=== PATIENT | female | born 1945 | race Caucasian/White ===

== ENCOUNTER 2017-10-30 19:14 | Inpatient (IN) | payer OTHER, BC ==
[2017-10-30] MEDS ORDERED: NS 500 ML IV ONE (19:27)
[2017-10-30] MEDS ORDERED: ONDANSETRON 4 MG/2 ML VIAL IVP ONE (19:27)
[2017-10-30] MEDS ORDERED: FAMOTIDINE 20 MG/NACL 50 ML IV ONE (19:27)
--- NOTE | 2017-10-30 19:34 | EDPHY ---
H & P Time Seen by Provider: 10/30/17 19:26 HPI/ROS: HPI Epigastric pain. 72-year-old female by private vehicle with and daughter. Both the patient and her arrived from [place] yesterday. They are looking at house is out here. Their daughter lives here. This patient has a history of pancreatitis. No clear etiology of this is been established. She reports that she developed epigastric pain over May of last year. She has had extensive testing involving her abdomen as well as cardiovascular system without any clear etiology for her pain. She reports that this morning she noticed that she had a band like upper abdominal discomfort. She reports that throughout the day it became worse. Comes on in waves. It is described as cramping and sharp and in the epigastric area. She has had some nausea but no vomiting. No diarrhea. No bloody or melenic stool. Last meal was earlier this morning. No history of extensive NSAID use. No history of alcohol abuse. No diabetes. ROS: Constitutional: No fever, no chills. No weakness. Eyes: No discharge. No changes in vision. ENT: No sore throat. No nasal congestion or rhinorrhea. Respiratory: No cough. No shortness of breath. Cardiac: No chest pain, no palpitations. Gastrointestinal: As above, no vomiting, no diarrhea. Genitourinary: No hematuria. No dysuria or increased frequency with urination. Musculoskeletal: No back pain. No neck pain. No myalgias or arthralgias. Skin: No rashes. Neurological: No headache. No focal weakness or altered sensation. Past medical history: TIA. As above. All of her health care has been in [place]. Social history: From [place]. Here with and daughter. Nonsmoker. No alcohol abuse. Physical Exam: General Appearance: Alert, appears comfortable but then will start wincing in pain. This patient is responding to questions appropriately and in full sentences. This patient appears well-hydrated and well-nourished. Eyes: Pupils equal and round no pallor or injection. No lid edema, erythema or injection. Respiratory: There are no retractions, lungs are clear to auscultation with good air movement bilaterally. Cardiovascular: Regular rate and rhythm. No murmur. Gastrointestinal: Abdomen is soft with mild to moderate mid epigastric tenderness on palpation, no masses, bowel sounds normal. No focal tenderness at McBurney's point. No Mejia sign. Neurological: Motor sensory function is grossly intact. Cranial nerves are normal. Gait is normal. Skin: Warm and dry, no rashes. Musculoskeletal: Neck is supple and nontender. Extremities are symmetrical. All joints range without pain or impingement. Psychiatric: No agitation. No depression. Database: EKG: EKG time is 7:34 p.m.; EKG shows a narrow complex normal sinus rhythm with a ventricular rate of 69. The AK, QRS, QT intervals are within normal limits. Premature atrial complex noted. There are no ST-T wave changes indicative of ischemic or injury pattern. No evidence of right heart strain. Interpreted by me. Imaging: CT scan of abdomen and pelvis with IV contrast: Pancreatic inflammation. No free air. Please see report above for further details. Results were discussed with staff radiologist Dr. Alli Arana. Procedures: Emergency department course: IV placed. She was placed on a monitor. She was started on IV normal saline with 500 cc to be given over the next hour. She and her consent to CT imaging. She will be given IV hydromorphone for pain control, Zofran for nausea and IV Pepcid. EKG obtained and reviewed by myself. 8:30 p.m., pain well controlled at this time. Waiting CT imaging. 10:35 p.m., patient re-evaluated. He states that her pain is starting to come back and is asking for more pain medication. She will be given 0.25 mg of IV hydromorphone. I thoroughly discussed the results of her CT imaging and blood work with her and her family. All of their questions were answered. I discussed her case with on-call hospitalist Dr. Rodriguez. He accepts this patient for admission. Her remaining emergency department course under my care has been uneventful. She was admitted to the hospitalist service in stable condition. Differential Diagnosis: The differential diagnosis on this patient includes but is not limited to exacerbation of pancreatitis. Acute coronary syndrome, cholecystitis, volvulus , perforated peptic ulcer unlikely. This represents a partial list of diagnoses considered. These considerations are based on history, physical exam , past history, reassessment and diagnostic testing. Smoking Status: Never smoked Constitutional: Initial Vital Signs Temperature (C) 36.3 C 10/30/17 19:15 Heart Rate 78 10/30/17 19:15 Respiratory Rate 16 04/15/18 19:15 Blood Pressure 173/67 H 10/30/17 19:15 O2 Sat (%) 98 10/30/17 19:15 O2 Delivery Mode Room Air Allergies/Adverse Reactions: Sulfa (Sulfonamide Antibiotics) Allergy (Verified 10/30/17 19:18) Home Medications: Medication Instructions Recorded ALPRAZolam [Alprazolam] 0.25 mg PO DAILY PRN 10/30/17 Aspirin EC [Aspirin EC 81 mg (*)] 81 mg PO DAILY 10/30/17 Metoprolol Succinate 100 mg PO DAILY 10/30/17 Triamterene/Hydrochlorothiazid 1 each PO DAILY 10/30/17 [Triamterene-Hctz 37.5-25 mg Tb] Zolpidem Tartrate 5 - 10 mg PO HS PRN 10/30/17 Medical Decision Making - Diagnostics Imaging Results: Imaging Impressions Abdomen CT 10/30/17 19:27 Impression: 1. Stranding in the retroperitoneum adjacent to the pancreas and third portion of duodenum, most likely related to pancreatitis or less likely duodenal ulcer. No visible pseudocyst or pancreatic necrosis. 2. Pancreatic ductal dilatation with no appreciable pancreatic mass, although there is abrupt truncation of the accessory pancreatic duct suspicious for mass. Endoscopy with endoscopic ultrasound may be useful for further evaluation. 3. Mild intrahepatic biliary dilatation without significant common bile duct dilatation. 4. Mild right hydronephrosis. 5. Pericholecystic fluid, likely related to the pancreatitis without definite evidence of cholecystitis. 6. 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 7. Additional findings, as above. Findings discussed with Lalita Vann MD on October 30, at 2122 hours. - Data Points Laboratory Results: Laboratory Results 10/30/17 19:30 10/30/17 19:30 10/30/17 10/30/17 19:30 19:30 WBC 11.50 10^3/uL H 10^3/uL (3.80-9.50) RBC 4.85 10^6/uL 10^6/uL (4.18-5.33) Hgb 14.5 g/dL g/dL (12.6-16.3) Hct 42.8 % % (38.0-47.0) MCV 88.2 fL fL (81.5-99.8) MCH 29.9 pg pg (27.9-34.1) MCHC 33.9 g/dL g/dL (32.4-36.7) RDW 13.7 % % (11.5-15.2) Plt Count 241 10^3/uL 10^3/uL (150-400) MPV 9.0 fL fL (8.7-11.7) Neut % (Auto) 73.5 % % (39.3-74.2) Lymph % (Auto) 20.0 % % (15.0-45.0) Worth % (Auto) 5.0 % % (4.5-13.0) Eos % (Auto) 0.9 % % (0.6-7.6) Baso % (Auto) 0.3 % % (0.3-1.7) Nucleat RBC Rel Count 0.0 % % (0.0-0.2) Absolute Neuts (auto) 8.46 10^3/uL H 10^3/uL (1.70-6.50) Absolute Lymphs (auto) 2.30 10^3/uL 10^3/uL (1.00-3.00) Absolute Monos (auto) 0.58 10^3/uL 10^3/uL (0.30-0.80) Absolute Eos (auto) 0.10 10^3/uL 10^3/uL (0.03-0.40) Absolute Basos (auto) 0.03 10^3/uL 10^3/uL (0.02-0.10) Absolute Nucleated RBC 0.00 10^3/uL 10^3/uL (0-0.01) Immature Gran % 0.3 % % (0.0-1.1) Immature Gran # 0.03 10^3/uL 10^3/uL (0.00-0.10) Sodium 139 mEq/L mEq/L (135-145) Potassium 3.4 mEq/L L mEq/L (3.5-5.2) Chloride 96 mEq/L L mEq/L (97-110) Carbon Dioxide 28 mEq/l mEq/l (22-31) Anion Gap 15 mEq/L mEq/L (8-16) BUN 19 mg/dL mg/dL (7-23) Creatinine 0.8 mg/dL mg/dL (0.6-1.0) Estimated GFR > 60 Glucose 109 mg/dL H mg/dL (70-100) Calcium 10.8 mg/dL H mg/dL (8.5-10.4) Phosphorus 3.9 mg/dL mg/dL (2.5-4.5) Total Bilirubin 0.8 mg/dL mg/dL (0.1-1.4) Conjugated Bilirubin 0.5 mg/dL mg/dL (0.0-0.5) Unconjugated Bilirubin 0.3 mg/dL mg/dL (0.0-1.1) AST 23 IU/L IU/L (14-46) ALT 29 IU/L IU/L (9-52) Alkaline Phosphatase 66 IU/L IU/L (38-126) Troponin I < 0.012 ng/mL ng/mL (0.000-0.034) Total Protein 6.8 g/dL g/dL (6.3-8.2) Albumin 4.1 g/dL g/dL (3.5-5.0) Lipase > 38498 IU/L H IU/L (23-300) Medications Given: Discontinued Medications Hydromorphone HCl (Dilaudid) 0.25 mg IVP EDNOW ONE Stop: 10/30/17 19:28 Last Admin: 10/30/17 22:32 Dose: 0.25 mg Sodium Chloride (Ns) 500 mls @ 0 mls/hr IV EDNOW ONE; Wide Open PRN Reason: Protocol Stop: 10/30/17 19:28 Last Admin: 10/30/17 19:40 Dose: 500 mls Famotidine/Sodium Chloride (Pepcid 20 Mg (Premix)) 50 mls @ 200 mls/hr IV EDNOW ONE Stop: 10/30/17 19:41 Last Admin: 10/30/17 19:39 Dose: 50 mls Ondansetron HCl (Zofran) 4 mg IVP EDNOW ONE Stop: 10/30/17 19:28 Last Admin: 10/30/17 19:39 Dose: 4 mg Departure - Departure Disposition: [facility] Acute Clinical Impression: Pancreatitis Condition: Fair
--- NOTE | 2017-10-30 19:36 | CPEKG ---
Heart Rate: 69 RR Interval: 870 P-R Interval: 144 QRSD Interval: 98 QT Interval: 392 QTC Interval: 420 P [place]: 55 QRS [place]: 20 T Wave [place]: 55 EKG Severity - OTHERWISE NORMAL ECG - EKG Impression: SINUS RHYTHM EKG Impression: ATRIAL PREMATURE COMPLEX Electronically Signed By: Lalita Vann 30-Oct-2017 23:15:05
[2017-10-30 19:38] LABS: PLATELET COUNT 241 10^3/uL (150-400)
[2017-10-30] MEDS: HYDROmorphONE/DILAUDID 2 MG/ML INJ IVP ONE ×2 (19:39→22:32)
[2017-10-30] MEDS ORDERED: IOPAMIDOL (ISOVUE-300) 100 ML BTL ONE (20:29)
[2017-10-30] MEDS ORDERED: ONDANSETRON DISINTEGRATING 4 MG TAB PO PRN (22:28)
[2017-10-30] MEDS ORDERED: HYDROmorphone HCL/NS 0.5 MG/ML SYR IVP PRN (22:28)
[2017-10-30] MEDS ORDERED: HYDROmorphONE/DILAUDID 2 MG TAB PO PRN (22:28)
[2017-10-30] MEDS ORDERED: NS W/ 20 KCl/L 1,000 ML IV SCH (22:30)
[2017-10-30] MEDS ORDERED: HYDROmorphONE/DILAUDID 1 MG/ML INJ IVP ONE (22:30)
[2017-10-30] MEDS ORDERED: HYDROmorphONE/DILAUDID 2 MG/ML INJ ONE (22:31)
[2017-10-30] MEDS: ONDANSETRON 4 MG/2 ML VIAL IVP PRN (23:01)
--- NOTE | 2017-10-30 23:32 | PDGENHP ---
History and Physical - Chief Complaint Abdominal pain - History of Present Illness 72 yo F w/ HTN presents abdominal pain. Patient developed severe, progressive abdominal pain starting on the morning of admission. This was accompanied by significant nausea. She has also been having greenish, loose stools and poor appetite. These symptoms are occurring overlying a backdrop of several months of abdominal issues. Starting in May, the patient has noted vague epi-gastric discomfort. She has lost about 20 lbs in that period. She had an endoscopy, likely ERCP, in June that revealed a pancreatic cyst and enlarged ducts but no clear evidence of pancreatic cancer, which her mother from. In the ED her lipase was found to be >20,[address] scan was c/w acute pancreatitis vs. less likely ulcerative disease. She denies NSAID or ETOH use. She has no prior hx of PUD. She also denies BRBPR or melena. History Information - Allergies/Home Medication List Allergies/Adverse Reactions: Sulfa (Sulfonamide Antibiotics) Allergy (Verified 10/30/17 19:18) Home Medications: ALPRAZolam [Alprazolam] 0.25 mg PO DAILY PRN 10/30/17 [Last Taken 10/30/17 2 DOSES TODAY] Aspirin EC [Aspirin EC 81 mg (*)] 81 mg PO DAILY 10/30/17 [Last Taken 10/30/17] Metoprolol Succinate 100 mg PO DAILY 10/30/17 [Last Taken 10/30/17] Triamterene/Hydrochlorothiazid [Triamterene-Hctz 37.5-25 mg Tb] 1 each PO DAILY 10/30/17 [Last Taken 10/30/17] Zolpidem Tartrate 5 - 10 mg PO HS PRN 10/30/17 [Last Taken 10/29/17 10] I have personally reviewed and updated: family history, medical history - Past Medical History hypertension - Family History Positive for: cancer (Pancreatic CA in mother) - Social History Smoking Status: Never smoked Review of Systems Review of Systems: ROS: 10pt was reviewed & negative except for what was stated in HPI & below Physical Exam Physical Exam: Temp Pulse Resp BP Pulse Ox 36.3 C 71 16 140/69 H 100 10/30/17 19:15 10/30/17 21:41 10/30/17 21:41 10/30/17 21:41 10/30/17 21:41 Constitutional: appears nourished, uncomfortable Eyes: PERRL, EOMI Ears, Nose, Mouth, Throat: moist mucous membranes, no oral mucosal ulcers Cardiovascular: regular rate and rhythym, no murmur, rub, or gallop Respiratory: no respiratory distress, clear to auscultation Gastrointestinal: normoactive bowel sounds, tenderness (Exquisite, epi-gastric) , No guarding, No rebound, No distension Skin: warm, normal color Musculoskeletal: full muscle strength, no muscle tenderness Neurologic: AAOx3, CN II-XII Intact Psychiatric: interacting appropriately, not anxious Lab Data & Imaging Review 10/30/17 19:30 10/30/17 19:30 WBC 11.50 10^3/uL (3.80-9.50) H 10/30/17 19: RBC 4.85 10^6/uL (4.18-5.33) 10/30/17 19:30 Hgb 14.5 g/dL (12.6-16.3) 10/30/17 19:30 Hct 42.8 % (38.0-47.0) 10/30/17 19:30 MCV 88.2 fL (81.5-99.8) 10/30/17 19:30 MCH 29.9 pg (27.9-34.1) 10/30/17 19:30 MCHC 33.9 g/dL (32.4-36.7) 10/30/17 19:30 RDW 13.7 % (11.5-15.2) 10/30/17 19:30 Plt Count 241 10^3/uL (150-400) 10/30/17 19:30 MPV 9.0 fL (8.7-11.7) 10/30/17 19:30 Neut % (Auto) 73.5 % (39.3-74.2) 10/30/17 19:30 Lymph % (Auto) 20.0 % (15.0-45.0) 10/30/17 19:30 [place] % (Auto) 5.0 % (4.5-13.0) 10/30/17 19:30 Eos % (Auto) 0.9 % (0.6-7.6) 10/30/17 19: Baso % (Auto) 0.3 % (0.3-1.7) 10/30/17 19:30 Nucleat RBC Rel Count 0.0 % (0.0-0.2) 10/30/17:30 Absolute Neuts (auto) 8.46 10^3/uL (1.70-6.50) H 10/30/17 19:30 Absolute Lymphs (auto) 2.30 10^3/uL (1.00-3.00) 10/30/17:30 Absolute Monos (auto) 0.58 10^3/uL (0.30-0.80) 10/30/17:30 Absolute Eos (auto) 0.10 10^3/uL (0.03-0.40) 10/30/17: Absolute Basos (auto) 0.03 10^3/uL (0.02-0.10) 10/30/17: Absolute Nucleated RBC 0.00 10^3/uL (0-0.01) 10/30/17: Immature Gran % 0.3 % (0.0-1.1) 10/30/17: Immature Gran # 0.03 10^3/uL (0.00-0.10) 10/30/17:30 Sodium 139 mEq/L (135-145) 10/30/17 19:30 Potassium 3.4 mEq/L (3.5-5.2) L 10/30/17:30 Chloride 96 mEq/L (97-110) L 10/30/17: Carbon Dioxide 28 mEq/l (22-31) 10/30/17:30 Anion Gap 15 mEq/L (8-16) 10/30/17 19:30 BUN 19 mg/dL (7-23) 10/30/17 19:30 Creatinine 0.8 mg/dL (0.6-1.0) 10/30/17 19:30 Estimated GFR > 60 10/30/17:30 Glucose 109 mg/dL (70-100) H 10/30/17 19:30 Calcium 10.8 mg/dL (8.5-10.4) H 10/30/17:30 Phosphorus 3.9 mg/dL (2.5-4.5) 04/15/18 19:30 Total Bilirubin 0.8 mg/dL (0.1-1.4) 10/30/17 19:30 Conjugated Bilirubin 0.5 mg/dL (0.0-0.5) 10/30/17 19:30 Unconjugated Bilirubin 0.3 mg/dL (0.0-1.1) 10/30/17 19:30 AST 23 IU/L (14-46) 10/30/17 19:30 ALT 29 IU/L (9-52) 10/30/17 19:30 Alkaline Phosphatase 66 IU/L (38-126) 10/30/17 19:30 Troponin I < 0.012 ng/mL (0.000-0.034) 10/30/17: Total Protein 6.8 g/dL (6.3-8.2) 10/30/17 19:30 Albumin 4.1 g/dL (3.5-5.0) 10/30/17 19:30 Lipase > 44131 IU/L (23-300) H 10/30/17 19:30 Imaging Review: Imaging Impressions Abdomen CT 10/30/17 19:27 Impression: 1. Stranding in the retroperitoneum adjacent to the pancreas and third portion of duodenum, most likely related to pancreatitis or less likely duodenal ulcer. No visible pseudocyst or pancreatic necrosis. 2. Pancreatic ductal dilatation with no appreciable pancreatic mass, although there is abrupt truncation of the accessory pancreatic duct suspicious for mass. Endoscopy with endoscopic ultrasound may be useful for further evaluation. 3. Mild intrahepatic biliary dilatation without significant common bile duct dilatation. 4. Mild right hydronephrosis. 5. Pericholecystic fluid, likely related to the pancreatitis without definite evidence of cholecystitis. 6. 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 7. Additional findings, as above. Findings discussed with Lalita Vann MD on October 30, at 2122 hours. Assessment & Plan Assessment: 72 yo F w/ HTN presents with acute pancreatitis. Plan: 1. Acute pancreatitis - Lipase >20,000 w/ severe abdominal pain and nausea on presentation. Trigger is unclear but there is some concern for occult malignancy noting family hx (mother of pancreatic CA), weight loss, and abrupt truncation of the accessory pancreatic duct on CT suspicious for mass. - NPO, mIVF, pain control with Dilaudid PO/IV, and anti-emetics PRN - Request records [place] [facility] [place] re: prior ERCP and diagnostic work-up - GI consult to help guide further diagnostics and possible repeat ERCP 2. HTN - Monitor BP, restart home meds if hypertensive. Diet - NPO, ADAT Code - Full Ppx - SCDs Dispo - Admit under inpatient status noting need for treatment of acute pancreatitis and further diagnostic work-up.
[2017-10-31] MEDS: D5W 1/2 NS W/ 20 KCl/L 1,000 ML IV SCH ×3 (00:07→21:46)
[2017-10-31 04:46] LABS: PLATELET COUNT 211 10^3/uL (150-400)
--- NOTE | 2017-10-31 07:14 | PDMN ---
Medical Necessity Medical necessity: Pt meets IP criteria per MD; est los >2 mn for eval/tx of acute pancreatitis w/lipase >20,000, severe abdominal pain & nausea; concern for malignancy; admit for further workup/monitoring, GI consult, IVFs, IV antiemetics & pain management; hx htn; per H&P & order 10/30/17
--- NOTE | 2017-10-31 09:14 | ASMTCASEMG ---
Living Arrangements What is your living Answers: With Spouse arrangement? Who do you live with? Type Of Residence What kind of residence do Answers: House you live in? Discharge Plan Comments Coordination Status Comments Notes: Pt is a 72 y/o female admitted for pancreatitis. Pt will most likely d/c independent when medically stable. No therapies ordered at this time. CM available for changes. Plan: Independent Date Signed: 10/31/2017 09:13 AM Electronically Signed By:TRENTON Jett
[2017-10-31] MEDS: ONDANSETRON 4 MG/2 ML VIAL IVP PRN (14:56)
--- NOTE | 2017-10-31 15:14 | GCON ---
[f rep st] CONSULTATION DATE OF CONSULTATION: 10/31/2017 REFERRING PHYSICIAN: Diamond Tilley MD CHIEF COMPLAINT: Abdominal pain. HISTORY OF PRESENT ILLNESS: I am asked to see this patient in consultation by Dr. Tilley for chief complaint of abdominal pain and pancreatitis. Patient is a 72-year-old who is visiting from [place] , who has a history of abdominal pain since June and has been undergoing an extensive evaluation, although we do not have these records as yet. She states that she has a regular dramatic agent who sounds like he has done upper endoscopy and then was referred for more advanced procedures. It s ounds like an ERCP, but is unclear if she also had an endoscopic ultrasound. This would be sometime around June. Was told that she had a cyst. This was sampled, but said that there were no malign ant cells. She has also had imaging. She was told for followup to have a repeat MRI in 6 months. S he then traveled to visit her daughter here in [place]. The patient states that she has difficulty sitting. She has been basically relegated to a recliner, is unclear cause. There is some concern th at she may have had a stroke. She also has issues with rapid heart rate, but upon arriving in [facility], she had increasing abdominal pain and presented to the emergency room, found to have elevated lip ase. She has had no nausea or vomiting. She states the pain is somewhat better today. She probably has had bouts of pancreatitis in the past few months, although it sounds like this was more signific ant. ALLERGIES: Sulfasalazine. MEDICATIONS: Home medications are Lorazepam, aspirin, metoprolol, triamterene/hydrochlorothiazide, z olpidem. PAST MEDICAL HISTORY: Hypertension, high heart rate, possible TIA, pancreatic lesion. FAMILY HISTORY: Notable for pancreatic cancer in her mother diagnosed in her 70s and for colon cance r diagnosed in her brother at age 58. SOCIAL HISTORY: She drinks only rare alcohol. REVIEW OF SYSTEMS: I performed a complete review of systems, which is negative except for pertinent positives and negatives noted above in the HPI. PHYSICAL EXAM: VITAL SIGNS: Temp is 37.2, BP 115/64, pulse 70. CONSTITUTIONAL: She is alert and hollie ented. HEENT: Eyes: No scleral icterus. No oral lesions. CARDIOVASCULAR: Regular rhythm. CHEST: Clear to auscultation. ABDOMEN: Positive bowel sounds. Tender to light palpation of epigastric ar ea with a fullness. NEUROLOGIC: Grossly nonfocal. SKIN: Lesion, no rashes. LABORATORY DATA: Notable for BUN 14, creatinine 0.6. CBC today is white count 10 with hematocrit of 37, platelets 211. Chemistries: Sodium on presentation was 139, alkaline phosphatase 66, AST 23, AL T 29, total bilirubin 0.8, but lipase was greater than 20,000. CT scan of the abdomen shows strandin g in the retroperitoneum adjacent to the pancreas in 3rd portion of the duodenum consistent with panc reatitis. No visible pseudocyst or pancreatic necrosis. Pancreatic duct dilation without appreciabl e mass. There is a cutoff in the accessory pancreatic duct suspicious for mass. Mild intrahepatic b iliary dilation without significant common duct dilation, right hydronephrosis, pericolic fluid. ASSESSMENT: Patient with pancreatitis in the setting of pancreatic abnormality that has been evaluat ed at an outside facility in [place]. Unfortunately, we do not have these records, but it sounds li ke she has at least had an upper endoscopy and probably an ERCP. Unclear if she also had an endoscop ic ultrasound, although that would be a reasonable thing to do if has not been done as yet. I did ta lk to the patient about this and her family, about doing an endoscopic ultrasound once her pancreatit is is improved, which could be done here or back home with her regular gastrologist as she is in the middle of an extensive workup there. The patient will think about it. For now, recommend n.p.o., IV fluids and pain medications. Thank you for this consult. /[id number]/MODL
--- NOTE | 2017-10-31 19:20 | HOSPPROG ---
Hospitalist Progress Note Assessment/Plan: # Acute pancreatitis - pt with previous history of pancreatitis and ERCP with cyst identified- lipase > 08726 Family history of pancreatic CA - new pain developed while traveling to [place] day prior to admission CT abdomen (personally reviewed and interpreted) pancreaitis with pancreatic duct dilation - get OSH records - cont NPO, IVF and pain meds - GI consult # HTN - pt taking HCTZ as an outpatient - with triamterene and high dose metoprolol oxygen saturations 94% on RA - dc HCTZ - holding other meds as BP saft currently # Depression - pt very tearful during my exam - endorses alot of anxiety related to her medical illness # proph - lovenox # diet - NPO with IVF # dispo - > 2 [place] as acutely ill requiring care for pancreatiis I have discussed the case with RN - continue conservative tox for pancreatitis Subjective: pain persists Objective: Vital Signs Temp Pulse Resp BP Pulse Ox 37.4 C 65 16 120/53 L 100 10/31/17 15:42 10/31/17 15:42 10/31/17 15:42 10/31/17 15:42 10/31/17 15:42 Laboratory Results 10/31/17 04:22 10/31/17 04:22 10/30/17 10/31/17 11/01/17 05:59 05:59 05:59 Intake Total 500 1000 Balance 500 1000 - Physical Exam Constitutional: no apparent distress Eyes: anicteric sclera Ears, Nose, Mouth, Throat: moist mucous membranes Cardiovascular: regular rate and rhythym Respiratory: no respiratory distress Gastrointestinal: normoactive bowel sounds Genitourinary: no bladder fullness Skin: warm Musculoskeletal: No asymmetric calves Neurologic: AAOx3 Psychiatric: interacting appropriately Lymph, Heme, Immunologic: no cervical LAD ICD10 Worksheet Patient Problems: Problems Problem Status Onset Pancreatitis Acute
[2017-10-31] MEDS: ZOLPIDEM TARTRATE 5 MG TAB PO PRN (21:46)
[2017-11-01] MEDS ORDERED: PROTOCOL POTASSIUM 1 DOSE MISC PRN (09:15)
[2017-11-01] MEDS: D5W 1/2 NS W/ 20 KCl/L 1,000 ML IV SCH (09:30)
[2017-11-01] MEDS ORDERED: POTASSIUM Cl (KCl) 100 ML IV SCH (11:15)
[2017-11-01] MEDS: POTASSIUM Cl (KCl) 10 MEQ in NS 100 ML IV SCH ×4 (12:04→23:09)
[2017-11-01] MEDS ORDERED: GADOBUTROL 10 ML VIAL IVP ONE (12:12)
--- NOTE | 2017-11-01 14:05 | HOSPPROG ---
Hospitalist Progress Note Assessment/Plan: # Acute pancreatitis - pt with previous history of pancreatitis and ERCP with cyst identified- lipase > 42569 Family history of pancreatic CA - new pain developed while traveling to [place] day prior to admission CT abdomen (personally reviewed and interpreted) pancreatitis with pancreatic duct dilation pain markedly improved today - - get OSH records - MRCP for today - cont NPO, IVF and pain meds - consider clears this afternoon # HTN - pt taking HCTZ as an outpatient - with triamterene and high dose metoprolol oxygen saturations 94% on RA - dc HCTZ - holding other meds as BP saft currently # Depression - pt very tearful during my exam - endorses alot of anxiety related to her medical illness # proph - lovenox # diet - NPO with IVF # dispo - > 2 MN as acutely ill requiring care for pancreatiis I have discussed the case with GI - ERCP with EUS ideally at home with home GI doc Subjective: pain markedly improved Objective: Vital Signs Temp Pulse Resp BP Pulse Ox 37.7 C 82 16 125/68 H 93 11/01/17 11:54 11/01/17 11:54 11/01/17 11:54 11/01/17 11:54 11/01/17 11:54 Laboratory Results 11/01/17 04:44 11/01/17 04:44 10/31/17 11/01/17 11/02/17 05:59 05:59 05:59 Intake Total 500 1000 Balance 500 1000 - Physical Exam Constitutional: appears nourished Eyes: anicteric sclera Ears, Nose, Mouth, Throat: moist mucous membranes Cardiovascular: regular rate and rhythym Respiratory: no respiratory distress Gastrointestinal: normoactive bowel sounds, tenderness, No guarding, No rebound Genitourinary: no bladder fullness Skin: warm Musculoskeletal: No asymmetric calves Neurologic: AAOx3 Psychiatric: interacting appropriately Lymph, Heme, Immunologic: no cervical LAD ICD10 Worksheet Patient Problems: Problems Problem Status Onset Pancreatitis Acute
[2017-11-01] MEDS: ZOLPIDEM TARTRATE 5 MG TAB PO PRN (22:32)
[2017-11-02] MEDS: D5W 1/2 NS W/ 20 KCl/L 1,000 ML IV SCH ×2 (01:05→12:55)
[2017-11-02] MEDS: POTASSIUM Cl (KCl) 10 MEQ in NS 100 ML IV SCH ×2 (01:05→03:08)
--- NOTE | 2017-11-02 11:15 | SOAPPROG ---
[facility] Progress Note Assessment/Plan: Assessment: Pancreatitis clinically much better. Pt does have some chronic abd pain but suspect acute exacerbation is better. 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 Consider worsening process or MRI changes from recent inflammation. Plan: Discussed with Dr. Ratliff recommend repeat EUS once over acute pancreatitis. this can be done in [place] or here potentially next week or two if patient prefers. OK to advance to clear liquids Consider Speech path evaluation (pt had recent EGD with no strictures or inflammation of esophagus) 11/02/17 11:10 Subjective: CC Abd pain Overall pain much better today. Patient not sure when she will return home and is considering moving to [place]. Pt c/o some trouble swallowing liquids Objective: Vital Signs Temp Pulse Resp BP Pulse Ox 36.8 C 80 16 141/67 H 98 11/02/17 08:00 11/02/17 08:00 11/02/17 08:00 11/02/17 08:00 11/02/17 08:00 Laboratory Results 11/01/17 04:44 11/02/17 04:55 11/01/17 11/02/17 11/03/17 05:59 05:59 05:59 Intake Total 1000 1740 Balance 1000 1740 Physical Exam - Physical Exam General Appearance: alert Respiratory: lungs clear Cardiac/Chest: regular rate, rhythm Abdomen: non-tender, soft ICD10 Worksheet Patient Problems: Problems Problem Status Onset Pancreatitis Acute
--- NOTE | 2017-11-02 11:34 | HOSPPROG ---
Hospitalist Progress Note Assessment/Plan: # Acute pancreatitis - pt with previous history of pancreatitis and ERCP with cyst identified- lipase --> 560 Family history of pancreatic CA - new pain developed while traveling to [place] day prior to admission CT abdomen (personally reviewed and interpreted) pancreatitis with pancreatic duct dilation MRCP with pancreatic duct and CBD stenosis pain improved today - - get OSH records - resume clears (NPO this am until GI eval) - reviewed with GI, plan to defer EUS/ERCP for 1-2 weeks when acute pancreatitis picture resolved. She may elect to return to [place] for this # HTN - pt taking HCTZ as an outpatient - with triamterene and high dose metoprolol oxygen saturations 94% on RA - dc HCTZ - cont to hold outpt meds for soft / nl BP's, resume when BP indicates # Depression - situational, continues to be tearful regarding fear of cancer # proph - lovenox # diet - clears, adat # dispo - > 2 MN as acutely ill requiring care for pancreatiis I have discussed the case with GI - ERCP with EUS ideally at home with home GI doc Subjective: PT is tearful, fearful of cancer dx. Pain improved, notes frequent loose stools, not watery, no melena. NO fevers/chills. No N/V overnight. Pain improved. Objective: Vital Signs Temp Pulse Resp BP Pulse Ox 36.8 C 80 16 141/67 H 98 11/02/17 08:00 11/02/17 08:00 11/02/17 08:00 11/02/17 08:00 11/02/17 08:00 Laboratory Results 11/01/17 04:44 11/02/17 04:55 11/01/17 11/02/17 11/03/17 05:59 05:59 05:59 Intake Total 1000 1740 Balance 1000 1740 - Physical Exam Constitutional: no apparent distress, other (tearful) Eyes: PERRL Ears, Nose, Mouth, Throat: moist mucous membranes Cardiovascular: regular rate and rhythym, no murmur, rub, or gallop Respiratory: no respiratory distress, clear to auscultation Gastrointestinal: normoactive bowel sounds, other (soft, nd, +epigastric TTP, no r/r/g) Skin: warm Musculoskeletal: full muscle strength Neurologic: AAOx3 Psychiatric: interacting appropriately ICD10 Worksheet Patient Problems: Problems Problem Status Onset Pancreatitis Acute
[2017-11-02] MEDS: ENOXAPARIN 40 MG/0.4 ML SYR SC SCH (12:55)
[2017-11-02] MEDS: ACETAMINOPHEN 325 MG TAB PO PRN ×2 (13:19→17:37)
--- NOTE | 2017-11-02 15:23 | ASMTCMCOM ---
CM Note CM Note Notes: Spoke with pt and dtr, re; dc poc. Pt here visiting with dtr, looking at homes and potentially relocating. Admitted with pancreatitis, pt had similar episode in [place] and was found to have a pancreatic cyst. Pt's mother of pancreatic ca. Pt wondering if there will be an MD who will follow her after hospital stay while she is still in [place], CM advised if she does have a procedure here, likely it will be that MD that she will f/u with. We discussed also sending her PCP updated notes regarding her medical care here. Pt will fill out a Medical Release form so we can send pertinent paperwork. She is otherwise independent and will dc home to dtr's house with family support. DC Plan: Independent Date Signed: 11/02/2017 03:22 PM Electronically Signed By:Nini Gonzalez RN
[2017-11-02] MEDS: ZOLPIDEM TARTRATE 5 MG TAB PO PRN (22:56)
[2017-11-03 05:25] LABS: PLATELET COUNT 218 10^3/uL (150-400)
[2017-11-03 07:14] VITALS: BP 145/66
[2017-11-03] MEDS: ENOXAPARIN 40 MG/0.4 ML SYR SC SCH (08:17)
[2017-11-03] MEDS ORDERED: POTASSIUM CL 10 MEQ TAB PO ONE (08:26)
--- NOTE | 2017-11-03 10:24 | SOAPPROG ---
[facility] Progress Note Assessment/Plan: Assessment: Pancreatitis clinically much better. Pt does have some chronic abd pain but suspect acute exacerbation is better. 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 Consider worsening process or MRI changes from recent inflammation. Plan: Discussed with Dr. Ratliff recommend repeat EUS once over acute pancreatitis. this can be done in [place] or here potentially next week or two if patient prefers. OK to advance to clear liquids Consider Speech path evaluation (pt had recent EGD with no strictures or inflammation of esophagus) 11/02/17 11:10 11/03/17 10:22 Pancreatitis acute event resolving will need follow up with EUS as outpatietn Plan OK to discharge home My office to contact patient next week to set up EUS Subjective: Abd pain Pain back to baseline able to tolerate solid food Objective: Vital Signs Temp Pulse Resp BP Pulse Ox 36.8 C 77 16 145/66 H 97 11/03/17 07:13 11/03/17 07:13 11/03/17 07:13 11/03/17 07:13 11/03/17 07:13 Laboratory Results 11/03/17 04:36 11/03/17 04:36 11/02/17 11/03/17 11/04/17 05:59 05:59 05:59 Intake Total 1740 Balance 1740 Physical Exam - Physical Exam General Appearance: alert Respiratory: chest non-tender, lungs clear Cardiac/Chest: regular rate, rhythm Abdomen: non-tender ICD10 Worksheet Patient Problems: Problems Problem Status Onset Pancreatitis Acute
[2017-11-03] MEDS ORDERED: METOPROLOL SUCCINATE XR 50 MG TAB PO SCH ×2 (11:00→11:03)
--- NOTE | 2017-11-03 13:16 | GDS ---
[f rep st] DISCHARGE SUMMARY DISCHARGE DIAGNOSES: 1. Acute on chronic pancreatitis. 2. Abnormal magnetic resonance cholangiopancreatography. 3. Hypertension. CONSULTANTS: Dr. Ericka Kim of gastroenterology. HISTORY: For details, please see the dictated history and physical dated October 30, 2017. In brief, the patient is a 72-year-old female with a history of hypertension, a prior episode of pancreatitis, and a family history of pancreatic cancer, who presented to the emergency department with abdominal p ain. She was diagnosed with acute pancreatitis, with a lipase of greater than 20,000, and was admitt ed to the hospital for further management. HOSPITAL COURSE: The patient was admitted to the medical-surgical unit. She was made n.p.o. Receiv ed IV fluids and pain control. She has had a similar event in the past and underwent ERCP in [facility]. Her abdomen CT on admission showed evidence of pancreatitis, with pancreatic ductal dilatation, though no appreciable pancreatic mass. However, there was an abrupt truncation of the accessory panc reatic duct suspicious for a mass. There was also noted to be mild intrahepatic biliary dilatation a nd pericholecystic fluid, likely related to pancreatitis. 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 Considerat ion was given to pancreatic adenocarcinoma versus acute on chronic pancreatitis. In addition, she wa s noted to have acute pancreatitis with diffuse peripancreatic edema, but no peripancreatic fluid col lection. A GI consult was obtained and although it was recommended she undergo endoscopic ultrasound and repeat ERCP, it was felt this was best deferred to the outpatient setting in 1-2 weeks once her acute pancreatic inflammation has resolved. She is considering whether to have this done at [facility] with Dr. Krzysztof Ratliff in 1-2 weeks or if she prefers to fly back to [place] to see her gastr oenterologist there for ongoing evaluation. She does have a fair amount of anxiety surrounding her i llness related to her family history of pancreatic cancer, and she does endorse a 20-pound weight los s. With conservative management in the hospital, her abdominal pain resolved. She was able to rhianna ate a full diet and return back to her baseline level of discomfort. DISPOSITION: The patient was discharged home in stable condition. FOLLOWUP: GI of the [facility] in 1-[address] Krzysztof Ratliff for endoscopic ultrasound and repeat ERC P. Alternatively, this may be done at her [place] [facility]. DISCHARGE MEDICATIONS: Please see Attendify for the complete outpatient medication list. There were no new medications on discharge. She will continue her metoprolol succinate XR 50 mg p.o. daily, asp irin 81 mg p.o. daily, alprazolam 0.25 mg daily p.r.n., and Ambien 5-10 mg p.o. at bedtime p.r.n. Di scontinued medication: Triamterene/HCTZ was discontinued due to possible association of pancreatitis with HCTZ. /[id number]/MODL
== END 2017-11-03 13:31 | disposition home or self-care (01) | DRG 440 ==
LOC: F3E 22:39
PROVIDERS: ADMIT Internal Medicine; ATTEND Hospitalist
DX: K85.90 Acute pancreatitis without necrosis or infection, unspecified (principal); K86.1 Other chronic pancreatitis; I10 Essential (primary) hypertension; R93.3 Abnormal findings on diagnostic imaging of other parts of digestive tract; F32.9 Major depressive disorder, single episode, unspecified; Z80.0 Family history of malignant neoplasm of digestive organs; Z86.73 Personal history of transient ischemic attack (TIA), and cerebral infarction without residual deficits
CPT/HCPCS: 96374; A9585; J1170; J1650; J2405; J3480; Q9967